=== PATIENT | female | born 1985 | race Caucasian/White ===

== ENCOUNTER → 2018-01-18 08:14 | Outpatient (CLI) | payer BC, SELFPAY ==
[2018-01-18 08:47] LABS: Glucose,1 Hr (Glucola) 82 mg/dL (80-140); HCT 36.8 % (36.0-46.0); HGB 12.4 g/dL (12.0-15.5); Mean Corp. HGB Concentration 33.7 g/dL (32.0-36.0); Mean Corpuscular Hemoglobin 30.1 pg (27.0-33.0); Mean Corpuscular Volume 89.3 fL (80-95); Mean Platelet Volume 11.6 fL (8.0-11.0); Platelet Count 163 x1000/uL (130-400); RBC 4.12 m/cumm (4.00-5.20); RBC Distribution Width 13.5 % (11.7-14.6); White Blood Cell Count 7.59 k/cumm (4.4-10.8)
== END ==
PROVIDERS: PCP Internal Medicine; Visit Provider Advanced Practice Midwife
DX: Z34.83 Encounter for supervision of other normal pregnancy, third trimester (principal); Z3A.28 28 weeks gestation of pregnancy
CPT/HCPCS: 36415; 82950; 85027

== ENCOUNTER 2018-03-20 17:16 | Outpatient (REF) | payer BC, SELFPAY | END 2018-03-20 17:36 | LOC: LBN 17:16 | PROVIDERS: PCP Internal Medicine; Visit Provider Advanced Practice Midwife | DX: Z34.93 Encounter for supervision of normal pregnancy, unspecified, third trimester (principal); Z36.85 Encounter for antenatal screening for Streptococcus B | CPT/HCPCS: 87081 ==

== ENCOUNTER 2018-03-29 00:32 | Outpatient (CLI) | payer BC, SELFPAY ==
--- NOTE | 2018-03-29 15:16 | DI.US_ITS ---
Many abnormalities cannot be diagnosed. A normal exam does not exclude a congenital anomaly. Radiology No. LMP: 07/11/17 Exam Date: 03/29/18 [facility] wks days on EDC ([facility]) 04/17/18 Confirmed: HISTORY: SIZE LESS THAN DATES, Z34.90 ---- PREDICTED GESTATIONAL AGE NUMBER 37.2 weeks with a range of 36.2 week to 38.2 weeks. 1 Determined by__X_[id number]___LMP___HISTORY Info. pertaining to fetus # PLACENTA PRESENTATION Grade II Cephalic__X_ Anterior_X__Posterior___ Breech____ Right Left Transverse(head right___ Fundal___Low-lying___Previa___ Transverse(head left___ Varying BIOMETRY AMNIOTIC FLUID BPD: 92 mm 37.2 weeks Normal HC: 326 mm 37 weeks AC: 334 mm 37.2 weeks FL: 72 mm 36.4 weeks AMNIOTIC FLUID INDEX >26 WK CRL: mm weeks Cisterna Magna: mm CI: RUQ:___2.7___LUQ___5.7 Cerebellum: cm EFW: 3117 grams Percentile RLQ:___1.9___LLQ__7.1 Total:____17.3____cms Composite AGE= 37 wks EDC by US 04/19/18 BIOPHYSICAL PROFILE ANATOMY IDENTIFIED SCORE 0/2 Heart: 4-Chamber___Rate:BPM_150____ LVOT: RVOT: Amniotic Fluid(>2cms)____ Stomach: Kidneys: Respirations (>30 secs) Bladder: Post. Fossa: Body Flex/Extension 3 vessel cord: Ventricles: cord insertion: Lips:____ Extremity Flex/Extension spinal morphology: Nose: Total Score= Palate: NS=not seen Limited third trimester protocol ultrasound was performed. biometry is consistent with a gestational age of 37 weeks and an EDC of 04/19/18. The estimated weight is 3117 grams. Placenta is anterior with no evidence of placenta previa and the fetus is in cephalic presentation. cardiac activity observed at a rate of 150 BPM. The JIMMY is 17 and there is visually a normal quantity of amniotic fluid.
== END 2018-03-29 00:52 ==
PROVIDERS: PCP Internal Medicine; Visit Provider Advanced Practice Midwife
DX: O26.843 Uterine size-date discrepancy, third trimester (principal); Z36.2 Encounter for other antenatal screening follow-up
CPT/HCPCS: 76816

== ENCOUNTER 2018-04-08 05:48 | Inpatient (IN) | payer BC, SELFPAY ==
[2018-04-08] MEDS: Normal Saline Flush 10 ML SYR (07:52)
[2018-04-08 08:15] LABS: HCT 41.2 % (36.0-46.0); HGB 14.4 g/dL (12.0-15.5); Mean Corpuscular Hemoglobin 30.2 pg (27.0-33.0); Mean Corpuscular Volume 86.4 fL (80-95); Mean Platelet Volume 11.6 fL (8.0-11.0); Platelet Count 151 x1000/uL (130-400); RBC 4.77 m/cumm (4.00-5.20); RBC Distribution Width 13.1 % (11.7-14.6); White Blood Cell Count 11.57 k/cumm (4.4-10.8)
[2018-04-08] MEDS: Oxytocin 10 UNITS/ML VIAL IM (08:35)
[2018-04-08] MEDS: Lidocaine 1% Pres-Free 5 ML VIAL (08:40)
[2018-04-08] MEDS: Hamamelis Leaf/Glycerin 100 EACH BOX PR (11:25)
[2018-04-08] MEDS: Ibuprofen 600 MG TAB PO ×2 (11:44→18:26)
[2018-04-08] MEDS: Acetaminophen 325 MG TAB 650 MG PO (16:34)
[2018-04-09] MEDS: Ibuprofen 600 MG TAB PO ×4 (03:48→23:27)
[2018-04-09 07:05] LABS: HCT 38.1 % (36.0-46.0); HGB 12.9 g/dL (12.0-15.5); Mean Corp. HGB Concentration 33.9 g/dL (32.0-36.0); Mean Corpuscular Hemoglobin 30.1 pg (27.0-33.0); Mean Corpuscular Volume 88.8 fL (80-95); Mean Platelet Volume 11.6 fL (8.0-11.0); Platelet Count 147 x1000/uL (130-400); RBC 4.29 m/cumm (4.00-5.20); RBC Distribution Width 13.5 % (11.7-14.6); White Blood Cell Count 9.99 k/cumm (4.4-10.8)
[2018-04-09] MEDS: Hamamelis Leaf/Glycerin 100 EACH BOX PR (16:28)
[2018-04-10] MEDS: Ibuprofen 600 MG TAB PO (07:58)
[2018-04-10] MEDS: Acetaminophen 325 MG TAB 650 MG PO (07:59)
== END 2018-04-10 09:35 | disposition home or self-care (01) | DRG 807 ==
PROVIDERS: Admitting Provider Advanced Practice Midwife; PCP Internal Medicine; Visit Provider Advanced Practice Midwife
DX: O42.02 Full-term premature rupture of membranes, onset of labor within 24 hours of rupture (principal); Z37.0 Single live birth; O62.3 Precipitate labor; Z3A.38 38 weeks gestation of pregnancy; O77.0 Labor and delivery complicated by meconium in amniotic fluid; O70.1 Second degree perineal laceration during delivery; O76 Abnormality in fetal heart rate and rhythm complicating labor and delivery
CPT/HCPCS: 36415; 85027; 86850; 86900; 86901

== ENCOUNTER 2018-05-23 15:42 | Outpatient (REF) | payer BC, SELFPAY ==
[2018-05-25 14:45] LABS: Chlamydia Result Negative; GC Result Negative; Specimen Description CERVIX
== END 2018-05-23 16:02 ==
LOC: LBN 15:42
PROVIDERS: PCP Internal Medicine; Visit Provider Advanced Practice Midwife
DX: Z30.09 Encounter for other general counseling and advice on contraception (principal); Z11.3 Encounter for screening for infections with a predominantly sexual mode of transmission
CPT/HCPCS: 87491; 87591

== ENCOUNTER 2020-06-30 08:51 | Outpatient (CLI) | payer BC, SELFPAY ==
[2020-07-01 12:28] LABS: COVID-19 RT-PCR UVMMC Result Negative (Negative)
== END 2020-06-30 09:11 ==
DX: Z20.822 Contact with and (suspected) exposure to COVID-19 (principal)
CPT/HCPCS: U0003

== ENCOUNTER 2022-08-10 10:53 | Outpatient (REF) | payer BC, SELFPAY ==
--- NOTE | 2022-08-10 14:20 | PAPFT_PTH ---
PATIENT: Ciro Rice LOC: [facility] U#:[id number] AGE/SX: 37/F ROOM: RE08/10/[address]: Roel He DNP : 1985 BED: DIS: 08/10/2022 SPEC #: [id number] RECD: 08/11/22 12:40 STATUS: [facility] #: [id number] MESERET: 08/10/22 14:[address]: Roel Collins DEPT: COUNT INCLUDES THE [facility] Cytology RECD BY: Janeth Tovar Tissues: 1 - CX/ENDOCX FOR PAP SMEARS Procedures: PAP THIN PREP/[facility] Screening HPV DNA PROBE Comments: [id number]
== END 2022-08-10 10:54 | disposition home or self-care (01) ==
LOC: LBN 10:53
PROVIDERS: PCP Nurse Practitioner Family; Visit Provider Nurse Practitioner Family
DX: Z12.4 Encounter for screening for malignant neoplasm of cervix (principal); Z11.51 Encounter for screening for human papillomavirus (HPV)
CPT/HCPCS: 88142; 87624

== ENCOUNTER 2023-08-25 03:41 | Outpatient (CLI) | payer BC, SELFPAY ==
[2023-08-25 08:23] LABS: ALT 15 U/L (14-59); AST 14 U/L (15-37); Albumin 4.3 g/dL (3.4-5.0); Alkaline Phosphatase 37 U/L (46-116); Anion Gap 9.9 mmol/L (3-11); BUN 20 mg/dL (7-18); Bilirubin, Total 0.4 mg/dL (0.2-1.0); CO2 26.1 mmol/L (21.0-32.0); CREATININE 0.9 mg/dL (0.55-1.02); Calcium 9.1 mg/dL (8.5-10.1); Calculated LDL 82 mg/dL (<100); Chloride 109 mmol/L (98-107); Cholesterol 167 mg/dL (<200); Estimated GFR 84.97 (mL/min/1.73m2); Glucose 90 mg/dL (74-106); HDL Cholesterol 80 mg/dL (40-60); Potassium 3.9 mmol/L (3.5-5.1); Sodium 145 mmol/L (136-145); TSH 1.43 uIU/Ml (0.36-3.74); Total Protein 7.8 g/dL (6.4-8.2); Triglyceride 27 mg/dL (<150)
[2023-08-25 16:58] LABS: T3,Free 3.9 pg/mL (2.8-5.3)
[2023-08-25 17:16] LABS: T3, Total 147 ng/dL (97-169)
[2023-08-25 18:47] LABS: Hepatitis C Ab w Rflx HCV PCR Negative (Negative)
== END 2023-08-25 03:42 | disposition home or self-care (01) ==
PROVIDERS: PCP Nurse Practitioner Family; Visit Provider Nurse Practitioner Family
DX: R53.83 Other fatigue (principal); Z13.220 Encounter for screening for lipoid disorders; Z11.59 Encounter for screening for other viral diseases
CPT/HCPCS: 36415; 80053; 80061; 85027; 86803; 84439; 84443; 84480; 84481

== ENCOUNTER 2023-09-04 05:56 | Outpatient (CLI) | payer BC, SELFPAY ==
[2023-09-04 15:57] LABS: HCT 40.1 % (36.0-46.0); MCH 28.7 pg (27.0-33.0); MCHC 32.4 % (32.0-36.0); MCV 89 fL (80-95); MPV 11.2 fL (8.0-11.0); Platelet Count 189 10^3/uL (130-400); RBC 4.53 10^6/uL (3.93-5.22); RDW 12.2 % (11.7-14.6); RDW-SD 39.5 fL; WBC 5.84 10^3/uL (4.4-10.8)
== END 2023-09-04 05:57 | disposition home or self-care (01) ==
PROVIDERS: PCP Nurse Practitioner Family; Visit Provider Nurse Practitioner Family
DX: R53.83 Other fatigue (principal)
CPT/HCPCS: 36415; 85027